=== PATIENT | female | born 1965 | race Caucasian/White ===

== ENCOUNTER → 2016-11-09 | Outpatient (CLI) | payer OTHER ==
[~2016-11-09] MED LIST: ACETAMINOPHEN PO; ATV/2 PO; CYCL10TA6 PO; GABA-112 PO; MELO7.5T5 PO; OXYB5TAB74 PO; OXYC20TA50 PO; OXYCODONE PO; PRLSR20 PO; RANI150T3 PO; ZOLP6.252 PO; [UNRECOGNIZED DRUG - OTHER] PO
--- NOTE | 2016-11-09 16:14 | DIAGNOSTIC IMAGING REPORT ---
CERVICAL SPINE 5 VIEWS HISTORY: Neuropathy M54.2 INCREASED NEUROPATHY COMPARISON: None. FINDINGS: The cervical spine is visualized from C1 through the superior endplate of T1. There is no fracture. Evidence for operative fusion of the C6-C7 vertebral bodies. Considerable degenerative change C5-C6 and to lesser extent C4-C5. Mild osteophytic narrowing of the neuroforamina bilaterally at C5-C7. Prevertebral soft tissues and the atlantodens interval are intact. IMPRESSION: Degenerative and postoperative change primarily from C5 through C7. Electronically signed by: Hussein Clemente M.D. 11/09/2016 4:13 PM Dictated Date/Time: 11/09/2016 4:12 PM
== END | disposition home or self-care (01) ==
LOC: C.RAD 15:45
DX: M54.2 Cervicalgia (principal)

== ENCOUNTER 2017-12-24 03:46 | Inpatient (IN) | payer OTHER ==
[~2017-12-24] VITALS: Ht 152.4 cm; Wt 50.1 kg
[~2017-12-24 03:46] MED LIST changes: +DTR/5 PO; -OXYB5TAB74 PO
[2017-12-24] MEDS ORDERED: SODIUM CHLORIDE 0.9% 1000ML 1,000 ML IV STA (03:51)
[2017-12-24] MEDS ORDERED: MoRPHine SULFATE 4 MG/ML 1 ML CARP\\VIAL IV STA (04:27)
[2017-12-24] MEDS ORDERED: ONDANSETRON INJ 2 MG/ML 2 ML VIAL IV STA (04:27)
[2017-12-24] MEDS ORDERED: OXYC-164 PO (04:42)
[2017-12-24] MEDS ORDERED: LISI-726 PO (04:45)
[2017-12-24] MEDS ORDERED: METH-1305 PO (04:45)
[2017-12-24] MEDS ORDERED: TRAZ1TAB48 PO (04:45)
[2017-12-24] MEDS ORDERED: RANI300T PO (04:45)
[2017-12-24] MEDS ORDERED: GABA-1219 PO (04:48)
[2017-12-24] MEDS ORDERED: PXL20 PO (04:48)
[2017-12-24] MEDS ORDERED: DTRSR/10 PO (04:48)
[2017-12-24] MEDS ORDERED: OMEP40CA41 PO (04:48)
[2017-12-24] MEDS ORDERED: MELO-84 PO (04:48)
[2017-12-24] MEDS ORDERED: THIA1TAB11 PO (04:49)
[2017-12-24] MEDS ORDERED: MELATAB2 PO (04:49)
[2017-12-24] MEDS ORDERED: ASPI81TA28 PO (04:49)
[2017-12-24] MEDS ORDERED: CHOL1000 PO (04:49)
[2017-12-24] MEDS ORDERED: TIZA4CAP PO (04:49)
[2017-12-24] MEDS ORDERED: HYDROmorphone INJ 1 MG/ML SYR IV STA (04:54)
--- NOTE | 2017-12-24 04:55 | EMERGENCY ROOM VISIT NOTE ---
ED Visit Note First contact with patient: 03:48 I have personally evaluated and examined this patient. I agree with assessment and plan of Kerri Georges PA-C. Left hip fx s/p fall out of wheelchair after hitting a paint.
[2017-12-24 05:10] LABS: BASO % 0.2 %; BASO ABS # 0.02 K/uL (0-0.2); EOS % 0.5 %; EOS ABS # 0.06 K/uL (0-0.5); HEMATOCRIT 44.7 % (37-47); HEMOGLOBIN 15.4 g/dL (12.0-16.0); IG# 0.06 K/uL (0.00-0.02); LYMPH ABS # 2.08 K/uL (1.2-3.4); MEAN CORPUSCULAR HEMOGLOBIN 34.5 pg (25-34); MEAN CORPUSCULAR HGB CONC 34.5 g/dl (32-36); MEAN PLATELET VOLUME 10.3 fL (7.4-10.4); MONO % 5.2 %; MONO ABS # 0.64 K/uL (0.11-0.59); NEUT % 76.6 %; NEUT ABS # 9.37 K/uL (1.4-6.5); PLATELET COUNT 203 K/uL (130-400); RED CELL DISTRIBUTION WIDTH SD 47.3 fL (36.4-46.3); WHITE BLOOD COUNT 12.23 K/uL (4.8-10.8)
[2017-12-24 05:26] LABS: PTT PATIENT 28.2 SECONDS (21.0-31.0)
[2017-12-24] MEDS ORDERED: SODIUM CHLORIDE 0.9% 500ML 500 ML IV STA (05:28)
[2017-12-24 05:34] LABS: ALBUMIN 3.7 gm/dl (3.4-5.0); CALCIUM 7.9 mg/dl (8.5-10.1); CREATININE 0.47 mg/dl (0.60-1.20); POTASSIUM 3.7 mmol/L (3.5-5.1); TOTAL PROTEIN 7.3 gm/dl (6.4-8.2)
[2017-12-24] MEDS ORDERED: CEFTRIAXONE SOD INJ 1 GM ADDVIAL IV STA (05:59)
[2017-12-24] MEDS ORDERED: ONDANSETRON INJ 2 MG/ML 2 ML VIAL IV PRN ×2 (06:00→07:30)
[2017-12-24] MEDS ORDERED: CEFAZOLIN 2000MG IV PUSH 15 ML IV SCH (06:00)
[2017-12-24] MEDS ORDERED: HYDROmorphone INJ 1 MG/ML SYR IV PRN (06:00)
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
[2017-12-24] MEDS ORDERED: MoRPHine SULFATE 2 MG/ML CARP IV PRN (07:30)
[2017-12-24] MEDS ORDERED: TRAZODONE HCL 50 MG TAB PO PRN (07:30)
[2017-12-24] MEDS ORDERED: GABAPENTIN 300 MG CAP PO PRN (07:30)
[2017-12-24] MEDS ORDERED: SOD PHOSPHATE/SOD BIPHOSPHATE ENEMA 132 ML BTL PR PRN (07:30)
[2017-12-24] MEDS ORDERED: POLYETHYLENE (MIRALAX) 17 GM PACK PO PRN (07:30)
[2017-12-24] MEDS ORDERED: NALOXONE HCL 0.4 MG/1 ML VIAL/CARP IV PRN (07:30)
[2017-12-24] MEDS ORDERED: RANITIDINE HCL 150 MG TAB PO PRN (07:30)
[2017-12-24] MEDS ORDERED: ACETAMINOPHEN 325 MG TAB PO PRN (07:30)
[2017-12-24] MEDS ORDERED: BISACODYL 10 MG SUPP PR PRN (07:30)
[2017-12-24] MEDS ORDERED: MAGNESIUM HYDROXIDE SUSP 30 ML UDC PO PRN (07:30)
[2017-12-24 07:42] VITALS: O2SAT 97; Ht 152.4 cm; Wt 50.1 kg
--- NOTE | 2017-12-24 07:43 | DIAGNOSTIC IMAGING REPORT ---
LEFT TIBIA AND FIBULA 2 VIEWS CLINICAL HISTORY: Left leg pain. FINDINGS: AP and crosstable lateral views of the left tibia and fibula are obtained. No prior studies are available for comparison at the time of dictation. The skeletal structures are osteopenic. There is no radiographic evidence of left tibial or fibular fracture. Mild degenerative changes noted in the knee and ankle. The overlying soft tissues are normal as imaged noting regional atrophy of the musculature. IMPRESSION: Osteopenia with no radiographic evidence of left tibial or fibular fracture. Electronically signed by: Shimon Morgan M.D. 12/24/2017 7:41 AM Dictated Date/Time: 12/24/2017 7:40 AM
[2017-12-24 08:25] VITALS: BP_SYST 182; BP_SYST 199; BP_DIAS 112; BP_DIAS 91; PULSE 101; TEMP 37.1; O2SAT 95
[2017-12-24] MEDS ORDERED: LACTATED RINGER'S 1000ML 1,000 ML IV SCH (08:45)
--- NOTE | 2017-12-24 08:45 | DIAGNOSTIC IMAGING REPORT ---
SINGLE VIEW CHEST CLINICAL HISTORY: Hip fracture. FINDINGS: An AP, portable, supine chest radiograph is compared to study dated 01/06/2016. The examination is significantly degraded by portable technique and patient rotation. The cardiomediastinal silhouette is unremarkable. The lungs and pleural spaces are clear. No pneumothorax is seen. The skeletal structures appear osteopenic. There are healed left-sided rib fractures. Extensive fusion hardware is seen at the thoracolumbar junction. Cholecystectomy clips are noted in the right upper quadrant. IMPRESSION: No acute cardiopulmonary abnormality. Electronically signed by: Shimon Morgan M.D. 12/24/2017 8:43 AM Dictated Date/Time: 12/24/2017 8:43 AM
--- NOTE | 2017-12-24 08:47 | DIAGNOSTIC IMAGING REPORT ---
SINGLE VIEW PELVIS; 2 VIEWS LEFT HIP CLINICAL HISTORY: Fall with left hip pain. FINDINGS: An AP view of the pelvis with AP and crosstable lateral views of the left hip are correlated with abdominal radiograph dated 01/06/2016. The skeletal structures are osteopenic. There is a nondistracted intertrochanteric fracture of the left femur. No additional fracture is identified. The bony pelvis and right hip appear maintained. Mild degenerative joint space narrowing is seen in the hips. Soft tissue edema is present in the left upper thigh. Postoperative change projects over the pubic symphysis. An ostomy projects over the right lower quadrant. IMPRESSION: 1. There is a nondistracted intertrochanteric fracture of the left femur. 2. No additional fracture is seen involving the bony pelvis or the right hip. Electronically signed by: Shimon Morgan M.D. 12/24/2017 8:46 AM Dictated Date/Time: 12/24/2017 8:44 AM
[2017-12-24] MEDS: OXYBUTYNIN CHLORIDE 5 MG TABCR PO SCH (09:26)
[2017-12-24] MEDS: METHENAMINE HIPPURATE 1 GM TAB PO SCH ×2 (09:27→20:33)
[2017-12-24] MEDS: PAROXETINE 20 MG TAB PO SCH (09:28)
[2017-12-24] MEDS: CHOLECALCIFEROL 1000 INTER.UNIT TAB PO SCH (09:28)
[2017-12-24] MEDS: PANTOprazole SOD 40 MG TAB PO SCH (09:29)
[2017-12-24] MEDS: ASPIRIN 81 MG ECTAB PO SCH (09:29)
[2017-12-24] MEDS: THIAMINE HCL 100 MG TAB PO SCH (09:29)
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
[2017-12-24] MEDS ORDERED: CHLORDIAZEPOXIDE 10 MG CAP PO PRN (11:00)
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
[2017-12-24] MEDS ORDERED: CLONIDINE HCL 0.1 MG TAB PO PRN (11:15)
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
[2017-12-24] MEDS: OXYCODONE HCL 20 MG TABCR (OXYCONTIN) PO SCH ×2 (11:31→20:33)
[2017-12-24] MEDS: MoRPHine SULFATE 4 MG/ML 1 ML CARP\\VIAL IV PRN ×2 (14:28→18:46)
[2017-12-24 15:56] VITALS: BP 155/81; PULSE 71; TEMP 37.1; O2SAT 97
[2017-12-24 17:00] VITALS: O2SAT 97
[2017-12-24] MEDS: DOCUSATE SODIUM/SENNA 50/8.6MG TAB PO SCH (20:33)
[2017-12-24] MEDS ORDERED: NON-FORMULARY MEDICATION (Melatonin (Melatonin Maximum Strengt) 1 TAB) PO SCH (21:00)
[2017-12-24 23:04] VITALS: BP 168/87; PULSE 71; TEMP 37.6; O2SAT 97
[2017-12-25] VITALS (10 sets, daily range): BP systolic 93–174; BP diastolic 53–97; PULSE 74–93; TEMP 36.5–37.2; O2SAT 94–99
[2017-12-25] MEDS: MoRPHine SULFATE 4 MG/ML 1 ML CARP\\VIAL IV PRN ×2 (00:21→00:55)
--- NOTE | 2017-12-25 07:14 | History & Physical Bridge Note ---
H&P Re-Evaluation Bridge Note: I have examined the patient, reviewed the History & Physical and in the interval since the performance of the History & Physical I have noted the following changes of clinical significance: No changes noted
[2017-12-25] MEDS ORDERED: MIDAZOLAM HCL 1 MG/ML 2ML VIAL ONE ×2 (07:23→07:54)
[2017-12-25] MEDS ORDERED: FENTANYL CITRATE INJ 50 MCG/1 ML 2 ML VIAL ONE ×3 (07:23→08:46)
[2017-12-25] MEDS ORDERED: PROPOFOL IV EMULSION 10 MG/ML 20 ML VIAL ONE (07:24)
[2017-12-25] MEDS ORDERED: ONDANSETRON INJ 2 MG/ML 2 ML VIAL IV PRN ×2 (07:30→09:30)
[2017-12-25] MEDS ORDERED: PHENYLEPHRINE 100MCG/ML 5ML SYR IV PRN (07:30)
[2017-12-25] MEDS ORDERED: ATROPINE SULFATE 0.1 MG/ML 5ML SYR IV PRN (07:30)
[2017-12-25] MEDS ORDERED: HYDROmorphone INJ 2 MG/ML SYR/VIAL IV PRN (07:30)
[2017-12-25] MEDS ORDERED: FLUMAZENIL 0.1 MG/1 ML 10 ML VIAL IV PRN (07:30)
[2017-12-25] MEDS ORDERED: MEPERIDINE HCL 25 MG/ML CARP IV PRN (07:30)
[2017-12-25] MEDS ORDERED: FENTANYL CITRATE INJ 50 MCG/1 ML 2 ML VIAL IV PRN (07:30)
[2017-12-25] MEDS ORDERED: EpHEDrine SULFATE INJ 50 MG/ML AMP IV PRN (07:30)
[2017-12-25] MEDS ORDERED: NALOXONE HCL 0.4 MG/1 ML VIAL/CARP IV PRN (07:30)
[2017-12-25] MEDS ORDERED: DEXAMETHASONE SOD INJ 4 MG/ML VIAL ONE (08:21)
[2017-12-25] MEDS ORDERED: ONDANSETRON INJ 2 MG/ML 2 ML VIAL ONE (08:21)
[2017-12-25] MEDS ORDERED: BUPIVACAINE 0.5 % 5 MG/1 ML PF 10ML VIAL ONE (08:56)
[2017-12-25] MEDS: ASPIRIN 81 MG ECTAB PO SCH (09:00)
--- NOTE | 2017-12-25 09:25 | [facility] Post Operative Brief Note ---
Immediate Operative Summary Operative Date Dec 25, 2017. Pre-Operative Diagnosis Intertrochanteric fracture, Left Hip. Post-Operative Diagnosis Same as preoperative. Procedure(s) Performed Intramedullary Tres Femur, Left Hip Surgeon Dr. Jeronimo Holden Butane Compressor Operator Surgeon(s) Lennox Leyva PA-C Estimated Blood Loss 250ml Findings Consistent with Post-Op Diagnosis Specimens None Anesthesia Type General
--- NOTE | 2017-12-25 09:28 | DIAGNOSTIC IMAGING REPORT ---
L FEMUR 2 VIEWS ROUTINE CLINICAL HISTORY: Left trochanteric nail. COMPARISON: Left hip and pelvis radiograph December 24, 2017. Fluoroscopy time: 52 seconds. FINDINGS: 2 fluoroscopic images demonstrate placement of an intramedullary jacob and trochanteric nail within the left femur. This fixates the intertrochanteric fracture of the left femur which appears anatomically aligned. No unexpected radiopaque foreign bodies identified. IMPRESSION: Fluoroscopic images demonstrating internal fixation of the intertrochanteric fracture of the left femur. Electronically signed by: Jerrod Chandra M.D. 12/25/2017 9:27 AM Dictated Date/Time: 12/25/2017 9:26 AM
[2017-12-25] MEDS ORDERED: OXYCODONE HCL IR 5 MG TAB (IMMEDIATE RELEASE) PO PRN ×2 (09:30)
[2017-12-25] MEDS ORDERED: HYDROmorphone INJ 0.5 MG/0.5 ML SYR IV PRN (09:30)
[2017-12-25] MEDS: SODIUM CHLORIDE 0.9% 1000ML 1,000 ML IV SCH ×2 (10:00→20:47)
[2017-12-25] MEDS: LABETALOL HCL IV 5 MG/ML 20ML IV PRN ×2 (10:05→10:10)
--- NOTE | 2017-12-25 10:37 | Anesthesiology Progress Note ---
Anesthesia Post Op Note Date & Time Dec 25, 2017 at 10:37 Vital Signs Pain Intensity: 0 Vital Signs Past 12 Hours Date Time Temp Pulse Resp B/P (MAP) Pulse Ox O2 Delivery O2 Flow Rate FiO2 12/25/17 10:25 36.5 79 18 145/91 97 Room Air Oxymask 12/25/17 10:15 74 15 140/86 99 Room Air Oxymask 12/25/17 10:05 91 15 155/97 97 Room Air Oxymask 12/25/17 10:00 97 15 174/122 96 Room Air Oxymask 12/25/17 09:50 103 17 176/122 96 Room Air Oxymask 12/25/17 09:40 97 16 176/109 96 Oxymask 8 12/25/17 09:32 36.2 114 16 107/82 96 Oxymask 8 12/25/17 07:20 37.1 93 18 174/81 (112) 96 Room Air 12/25/17 00:20 Room Air 12/24/17 23:04 37.6 71 16 168/87 (114) 97 Room Air Notes Mental Status: alert / awake / arousable, participated in evaluation Pt Amnestic to Procedure: Yes Nausea / Vomiting: adequately controlled Pain: adequately controlled Airway Patency, RR, SpO2: stable & adequate BP & HR: stable & adequate Hydration State: stable & adequate Anesthetic Complications: no major complications apparent The patient did well. She is awake and comfortable in PACU. She was given labetalol for hypertension in the PACU. Her vitals are now stable.
[2017-12-25] MEDS: MULTI-VITAMIN INFUSION INJ 10 ML, THIAMINE HCL INJ 100 MG, FoLIC ACID INJ 1 MG in SODIU... IV SCH (11:20)
[2017-12-25] MEDS: OXYCODONE HCL 20 MG TABCR (OXYCONTIN) PO SCH ×2 (11:21→20:46)
[2017-12-25] MEDS: CHOLECALCIFEROL 1000 INTER.UNIT TAB PO SCH (11:22)
[2017-12-25] MEDS: OXYBUTYNIN CHLORIDE 5 MG TABCR PO SCH (11:22)
[2017-12-25] MEDS: THIAMINE HCL 100 MG TAB PO SCH (11:23)
[2017-12-25] MEDS: PAROXETINE 20 MG TAB PO SCH (11:23)
[2017-12-25] MEDS: METHENAMINE HIPPURATE 1 GM TAB PO SCH ×2 (11:25→20:56)
[2017-12-25] MEDS: PANTOprazole SOD 40 MG TAB PO SCH (11:26)
--- NOTE | 2017-12-25 12:56 | Progress Note ---
Subjective Date of Service: Dec 25, 2017. Problem List Medical Problems: (1) Closed left hip fracture Status: Acute (2) Fall Status: Acute (3) Lower leg abrasion Status: Acute (4) UTI (urinary tract infection) Status: Acute Objective Vital Signs Date Time Temp Pulse Resp B/P (MAP) Pulse Ox O2 Delivery O2 Flow Rate FiO2 12/25/17 12:45 37.1 83 15 93/53 (66) 94 Room Air 12/25/17 12:06 37.1 83 16 108/73 (85) 94 Room Air 12/25/17 11:25 36.5 79 16 158/97 (117) 97 Room Air 12/25/17 10:50 36.9 77 16 122/87 (99) 96 Room Air 12/25/17 10:25 36.5 79 18 145/91 97 Room Air Oxymask 12/25/17 10:15 74 15 140/86 99 Room Air Oxymask 12/25/17 10:05 91 15 155/97 97 Room Air Oxymask 12/25/17 10:00 97 15 174/122 96 Room Air Oxymask 12/25/17 09:50 103 17 176/122 96 Room Air Oxymask 12/25/17 09:40 97 16 176/109 96 Oxymask 8 12/25/17 09:32 36.2 114 16 107/82 96 Oxymask 8 12/25/17 07:20 37.1 93 18 174/81 (112) 96 Room Air 12/25/17 00:20 Room Air 12/24/17 23:04 37.6 71 16 168/87 (114) 97 Room Air 12/24/17 17:00 97 Room Air 12/24/17 15:56 37.1 71 16 155/81 (105) 97 Room Air Assessment and Plan 52-year-old paraplegic female fell out of her wheelchair sustaining left hip fracture scheduled for operative repair Patient is a history of hypertension, holding lisinopril, clonidine prn as it may also help with any alcohol withdrawal symptoms Alcohol use, this is a sensitive subject the patient denied to me but admitted to the anesthesiologist Dr. Arguello but with the hospice is that this would not be placed in her chart. We will give her a banana bag, continue to have Librium available paraplegia oxybutynin Zanaflex trazodone and gabapentin depression Paxil GERD Prilosec this week pharmacy substituted Orthopedics has chosen Aspirin bid for DVT prevention
[2017-12-25] MEDS: CEFAZOLIN IV 1,000 MG in SYRINGE 0 ML IV SCH ×2 (15:39→23:40)
[2017-12-25] MEDS: OXYCODONE HCL IR 5 MG TAB (IMMEDIATE RELEASE) PO PRN ×2 (15:40→20:47)
[2017-12-25] MEDS: HYDROmorphone INJ 0.5 MG/0.5 ML SYR IV PRN (18:33)
[2017-12-25] MEDS: DOCUSATE SODIUM/SENNA 50/8.6MG TAB PO SCH (20:57)
[2017-12-25] MEDS: ASPIRIN/ALUM/MAGNES/CAL CARB 325 MG TAB PO SCH (20:57)
[2017-12-26] MEDS: OXYCODONE HCL IR 5 MG TAB (IMMEDIATE RELEASE) PO PRN ×3 (02:20→23:43)
[2017-12-26 03:10] VITALS: BP 96/62; PULSE 77; TEMP 37.2; O2SAT 98
[2017-12-26 06:51] LABS: HEMATOCRIT 28.9 % (37-47); MEAN CELL VOLUME 99.7 fL (80-100); MEAN CORPUSCULAR HEMOGLOBIN 34.5 pg (25-34); MEAN CORPUSCULAR HGB CONC 34.6 g/dl (32-36); MEAN PLATELET VOLUME 9.8 fL (7.4-10.4); PLATELET COUNT 144 K/uL (130-400); RED CELL DISTRIBUTION WIDTH CV 12.7 % (11.5-14.5); RED CELL DISTRIBUTION WIDTH SD 46.6 fL (36.4-46.3); WHITE BLOOD COUNT 11.84 K/uL (4.8-10.8)
[2017-12-26 07:11] VITALS: BP 120/69; PULSE 75; TEMP 37.3; O2SAT 97
--- NOTE | 2017-12-26 08:15 | OPERATIVE REPORT ---
DATE OF OPERATION: 12/25/2017 PREOPERATIVE DIAGNOSIS: Intertrochanteric fracture, left hip. POSTOPERATIVE DIAGNOSIS: Same. PROCEDURE: Included an intramedullary rodding, proximal femur, short nail, Synthes marker.to. SURGEON: Jeronimo Holden DO. MARKETING RESEARCHER: Lennox Leyva PA-C. COMPLICATIONS: None apparent. BLOOD LOSS: 250. COUNTS: Sponge and needle counts correct. DRAINS: None used. DESCRIPTION OF PROCEDURE: Patient was taken to the operating room. A general intubated anesthetic provided after a failed spinal anesthesia. She was placed on the traction table, it was not difficult because of her contractions of the musculature and the smallness of her lower extremity. We did get her safely secured. We pulled her out to length in a provisional reduction. We scrubbed, prepped, draped sterile. We made a skin incision, fascial incision, came right in the tip of the greater trochanter, advanced the guidewire, visualized both AP and lateral images. We reamed, put in a small nail, locked proximally and distally. I was pleased with the essentially anatomic orthodoxy and positioning of the implant. We irrigated and closed in layers, staple gun on the skin, sterile dressing applied. The patient was returned to PACU stable. I attest to the content of the Intraoperative Record and any orders documented therein. Any exception s are noted below.
[2017-12-26 08:26] VITALS: O2SAT 97
[2017-12-26] MEDS: OXYCODONE HCL 20 MG TABCR (OXYCONTIN) PO SCH ×2 (09:18→21:00)
[2017-12-26] MEDS: METHENAMINE HIPPURATE 1 GM TAB PO SCH ×2 (09:19→21:00)
[2017-12-26] MEDS: ASPIRIN/ALUM/MAGNES/CAL CARB 325 MG TAB PO SCH ×2 (09:19→20:59)
[2017-12-26] MEDS: PAROXETINE 20 MG TAB PO SCH (09:20)
[2017-12-26] MEDS: OXYBUTYNIN CHLORIDE 5 MG TABCR PO SCH (09:20)
[2017-12-26] MEDS: LISINOPRIL 20 MG TAB PO SCH (09:20)
[2017-12-26] MEDS: CIPROFLOXACIN 500 MG TAB PO SCH ×2 (09:21→21:00)
[2017-12-26] MEDS: PANTOprazole SOD 40 MG TAB PO SCH (09:21)
[2017-12-26] MEDS: THIAMINE HCL 100 MG TAB PO SCH (09:22)
[2017-12-26] MEDS: CHOLECALCIFEROL 1000 INTER.UNIT TAB PO SCH (09:22)
[2017-12-26] MEDS: MULTI-VITAMIN INFUSION INJ 10 ML, THIAMINE HCL INJ 100 MG, FoLIC ACID INJ 1 MG in SODIU... IV SCH (09:27)
--- NOTE | 2017-12-26 09:47 | Clinical Documentation Query ---
CLINICAL DOCUMENTATION QUERY QUERY 1 OF 2 52 yo female admitted with left hip fracture and surgical intervention. Hgb was 15.4 on admission and trended down to 10 post surgery. In your clinical opinion is this patient being managed for: ( x ) Expected acute blood loss anemia, postoperative ( ) Not Agree ( ) Other explanation of clinical findings (No explanation is considered a No Response) ( ) Unable to determine ( ) Need to Discuss (Phone CDS or qliq) (No discussion is considered a No Response) The medical record reflects the following clinical findings, treatment, and risk factors. Clinical Indicators: As above Treatment: IV hydration, type and screen, I&O, serial CBCs Risk Factors: S/P surgical intervention, 250ml blood loss, IV hydration QUERY 2 OF 2 Patient's urinalysis shows large leukocytes, 10-30 WBCs, and 2+ bacteria. Urine culture shows Klebsiella Oxytoca/Pseudomonas Aeruginosa. Patient has a cash catheter and is on Cipro and Ancef IV. In your clinical opinion is this patient being managed for: ( x ) Urinary tract infection Expected acute blood loss anemia, postoperative ( ) Not Agree ( ) Other explanation of clinical findings (No explanation is considered a No Response) ( ) Unable to determine ( ) Need to Discuss (Phone CDS or qliq) (No discussion is considered a No Response) The medical record reflects the following clinical findings, treatment, and risk factors. Clinical Indicators: As above Treatment: As above Risk Factors: Partial paraplegia with continuous cash catheter, female Please clarify and document your clinical opinion in the progress notes and discharge summary. Terms such as "probable", "suspected", "likely", "questionable", "possible", or "still to be ruled out" are acceptable. IF IN AGREEMENT, YOU MUST DOCUMENT ABOVE DIAGNOSTIC STATEMENT IN DAILY PROGRESS NOTES AND DISCHARGE SUMMARY. This document is not part of the patient's record. Thank You, Nirali Navarro RN, MSN [phone]
[2017-12-26] MEDS: SODIUM CHLORIDE 0.9% 1000ML 1,000 ML IV SCH (10:49)
--- NOTE | 2017-12-26 10:59 | ORTHOPEDICS PROGRESS NOTE ---
DATE: 12/26/2017 SUBJECTIVE: She is alert and oriented, moderate complaints of pain, really in her ribcage, shoulders, not so much in her left hip. OBJECTIVE: VITAL SIGNS: Stable. 37.2 oral temperature. Blood pressure is stable. Hematocrit 28.1, hemoglobin 10.1. ASSESSMENT: Status post open reduction internal fixation of her hip. PLAN: Includes up and ambulatory at least out of bed to a wheelchair. She will be complete assist and complete lift, will be a very difficult postoperative course. Hopefully, get her to a rehabilitation center tomorrow the or at latest the . She would be unsafe to go home.
[2017-12-26] MEDS ORDERED: NURSING VERBAL MED ORDER ONE (11:45)
--- NOTE | 2017-12-26 15:18 | Progress Note ---
Subjective Date of Service: Dec 26, 2017. Subjective Pt evaluation today including: conversation w/ patient, physical exam, chart review, lab review, review of studies, conversation w/ leasing consultant, review of inpatient medication list Voiding: cash catheter in place Reports significant pain when moved, she want to keep Cash for day 1 or 2 more , I agreed, Problem List Medical Problems: (1) Closed left hip fracture Status: Acute (2) Fall Status: Acute (3) Lower leg abrasion Status: Acute (4) UTI (urinary tract infection) Status: Acute Review of Systems Constitutional: + weakness, + fatigue, No fever, No chills, No sweats, No weight loss, No problem reported Eyes: No worsening of vision, No eye pain, No redness, No discharge, No diplopia ENT: No hearing loss, No unusual epistaxis, No nasal symptoms, No sore throat, No tinnitus, No dental problems, No trouble swallowing Respiratory: No cough, No sputum, No wheezing, No shortness of breath, No dyspnea on exertion, No dyspnea at rest, No hemoptysis Cardiac: No chest pain, No orthopnea, No PND, No edema, No claudication, No palpitations Abdomen: No pain, No nausea, No vomiting, No diarrhea, No constipation Musculoskeletal: + joint pain, No muscle pain, No swelling, No calf pain Female : No dysuria, No urinary frequency, No hematuria, No incontinence, No abnormal vaginal bleeding, No vaginal discharge Neurologic: No memory loss, No paralysis, No weakness, No numbness/tingling, No vertigo, No balance problems Psychiatric: No depression symptoms, No anhedonism, No anxiety, No insomnia, No substance abuse Heme: No abnormal bleeding/bruising, No clotting problems, No swollen lymph nodes, No night sweats Endo: No fatigue, No excessive thirst, No excessive urination Skin: No rash, No itch, No new/changing skin lesions, No color change, No bleeding Objective Vital Signs Date Time Temp Pulse Resp B/P (MAP) Pulse Ox O2 Delivery O2 Flow Rate FiO2 12/26/17 08:26 97 Room Air 12/26/17 07:11 37.3 75 16 120/69 (86) 97 Room Air 12/26/17 03:10 37.2 77 16 96/62 (73) 98 Room Air 12/25/17 23:35 37.2 83 16 109/72 (84) 99 Room Air 12/25/17 20:30 Room Air 12/25/17 19:25 37.0 74 16 104/65 (78) 98 Room Air 12/25/17 15:54 36.8 76 16 125/77 (93) 96 Room Air 12/25/17 15:25 96 Room Air Physical Exam General Appearance: WD/WN, no apparent distress, + thin Eyes: normal inspection, PERRL, EOMI, sclerae normal ENT: normal ENT inspection, hearing grossly normal, pharynx normal Neck: supple, no adenopathy, thyroid normal, no JVD, no carotid bruits, trachea midline Respiratory/Chest: chest non-tender, lungs clear, normal breath sounds, no respiratory distress, no accessory muscle use Cardiovascular: regular rate, rhythm, no edema, no gallop, no JVD, no murmur Abdomen: normal bowel sounds, non tender, soft, no organomegaly, no pulsatile mass, + pertinent finding (Cash in place,) Extremities: normal range of motion, non-tender, normal inspection, no pedal edema, no calf tenderness, normal capillary refill, pelvis stable Neurologic/Psychiatric: peoplesoft financials consultant II-XII nml as tested, alert, oriented x 3, + motor weakness Skin: normal color, warm/dry, no rash Lymphatic: no adenopathy Laboratory Results Last 24 Hours Test 12/26/17 06:35 White Blood Count 11.84 K/uL Red Blood Count 2.90 M/uL Hemoglobin 10.0 g/dL Hematocrit 28.9 % Mean Corpuscular Volume 99.7 fL Mean Corpuscular Hemoglobin 34.5 pg Mean Corpuscular Hemoglobin Concent 34.6 g/dl RDW Standard Deviation 46.6 fL RDW Coefficient of Variation 12.7 % Platelet Count 144 K/uL Mean Platelet Volume 9.8 fL Assessment and Plan 52-year-old paraplegic female admitted on December 24, 2017 because of fell out of her wheelchair sustaining left hip fracture Procedure done on December 25, 2017, Status post open reduction internal fixation of her hip Postop day 1, Orthopedic input appreciated, ambulatory at least out of bed to a wheelchair. Looking for rehabilitation center tomorrow Patient is not safe to go home Patient is a history of hypertension, holding lisinopril, clonidine prn Possible alcohol use, patient denied to hospitalist but admitted to the anesthesiologist Dr. Arguello Continue to give her a banana bag, continue to have Librium available paraplegia from accident, because of spinal injury, oxybutynin Zanaflex trazodone and gabapentin depression Paxil GERD Prilosec this week pharmacy substituted Klebsiella and Pseudomonas UTI, Cipro started, Orthopedics has chosen Aspirin bid for DVT prevention recycling worker consultation, continue Cash, Continued [facility] stay due to: multiple IV medications needed Discharge planning: home
[2017-12-26 15:57] VITALS: BP 90/56; PULSE 75; TEMP 37; O2SAT 97
[2017-12-26] MEDS: HYDROmorphone INJ 0.5 MG/0.5 ML SYR IV PRN (16:11)
[2017-12-26] MEDS: DOCUSATE SODIUM/SENNA 50/8.6MG TAB PO SCH (21:00)
[2017-12-26 23:00] VITALS: BP 94/58; PULSE 75; TEMP 37.2; O2SAT 94
[2017-12-27 07:25] VITALS: BP 99/61; PULSE 68; TEMP 37.1; O2SAT 97
[2017-12-27] MEDS: PAROXETINE 20 MG TAB PO SCH (08:20)
[2017-12-27] MEDS: THIAMINE HCL 100 MG TAB PO SCH (08:21)
[2017-12-27] MEDS: PANTOprazole SOD 40 MG TAB PO SCH (08:21)
[2017-12-27] MEDS: METHENAMINE HIPPURATE 1 GM TAB PO SCH (08:21)
[2017-12-27] MEDS: CHOLECALCIFEROL 1000 INTER.UNIT TAB PO SCH (08:21)
[2017-12-27] MEDS: OXYBUTYNIN CHLORIDE 5 MG TABCR PO SCH (08:21)
[2017-12-27] MEDS: LISINOPRIL 20 MG TAB PO SCH (08:21)
[2017-12-27] MEDS: ASPIRIN/ALUM/MAGNES/CAL CARB 325 MG TAB PO SCH (08:22)
[2017-12-27] MEDS: CIPROFLOXACIN 500 MG TAB PO SCH (08:22)
[2017-12-27] MEDS: OXYCODONE HCL IR 5 MG TAB (IMMEDIATE RELEASE) PO PRN ×2 (08:23→14:33)
[2017-12-27] MEDS: MULTI-VITAMIN INFUSION INJ 10 ML, THIAMINE HCL INJ 100 MG, FoLIC ACID INJ 1 MG in SODIU... IV SCH (09:29)
[2017-12-27] MEDS: OXYCODONE HCL 20 MG TABCR (OXYCONTIN) PO SCH (09:30)
[2017-12-27] MEDS ORDERED: CPR500 PO (12:39)
[2017-12-27] MEDS ORDERED: FLV1 PO (12:39)
[2017-12-27] MEDS ORDERED: MULT-1027 PO (12:39)
[2017-12-27] MEDS ORDERED: ASPI325T60 PO (12:39)
--- NOTE | 2017-12-27 12:40 | Discharge Instructions ---
Discharge Instructions Date of Service Dec 27, 2017. Admission Reason for Admission: Closed Left Hip Fracture Discharge Discharge Diagnosis / Problem: left hip fx s/p ORIF Discharge Goals Goal(s): Decrease discomfort, Improve function, Increase independence, Improve disease control, Improve nutritional status, Learn about illness, Diagnostic testing, Therapeutic intervention, Prevent Disease Progression, Specific goals Activity Recommendations Activity Limitations: per Instructions/Follow-up section . Instructions / Follow-Up Instructions / Follow-Up you have left hip fracture Status post open reduction internal fixation of her hip per orthopedic surgeon has chosen Aspirin daily for DVT prevention, I RX 42 days , for the length of oral 325mg ASA, please follow up instruction with Dr. Holden you have heavy alcohol use, recommend quit, and offered help, call pcp if need help you have Urinary tract infection I am giving you Cipro, you need to discontinue Weaver catheter after arriving home, resume straight caths by yourself as you used doing Due to impaired attention of fall precaution, continue home health care, continue PT OT if needed - you need to follow up with your primary care physician in 1 week, - take medication as instructed, never overdose or any misuse, or take with alcohol, because misuse of medicine may cause organ damage or , call me , or your primary care physician if have questions of discharge medicaitons. - call your primary care physician, or go to local emergency room if has any fever/chill, chest pain, shortness of breathing, nausea/vomiting/abdominal pain , facial droop/slurry speech/local weakness, or if has any questions. - fall precaution - diet as instructed - you need to follow up with your subspecialist, such as Dr. Holden Current Hospital Diet Patient's current hospital diet: Regular Diet Discharge Diet Recommended Diet: Regular Diet Procedures Procedures Performed: Intramedullary Tres Femur, Left Hip Pending Studies Studies pending at discharge: no Medical Emergencies . Who to Call and When: Medical Emergencies: If at any time you feel your situation is an emergency, please call 911 immediately. . Non-Emergent Contact Non-Emergency issues call your: Primary Care Provider, Surgeon . . "Provider Documentation" section prepared by Bud Mckoy. .
--- NOTE | 2017-12-27 12:55 | Discharge Summary ---
Discharge Summary Date of Service Dec 27, 2017. Discharge Summary Admission Date: Dec 24, 2017 at 07:26 Discharge Date: Dec 27, 2017 Discharge Disposition: Home with services Principal Diagnosis: left hip fracture s/p ORIF Problems/Secondary Diagnoses: heavy alcohol use, Urinary tract infection Immunizations: History of Tetanus Vaccine?: No History of Pneumococcal: No History of Hepatitis B Vaccine: No Procedures: ORIF Consultations: Orthopedic surgeon Medication Reconciliation New Medications: Folic Acid (Folic Acid) 1 Mg Tab 1 MG PO DAILY for 30 Days Multiple Vitamin (Multi Vitamin) 1 Tab Tab 1 TAB PO DAILY for 30 Days Aspirin Buffered (Hood Carb-Mag (Tri-Buffered Aspirin) 1 Tab Tab 325 MG PO BID for 42 Days, TAB Ciprofloxacin (Ciprofloxacin HCl) 500 Mg Tab 500 MG PO BID for 7 Days, #14 TAB Continued Medications: Aspirin (Aspirin Ec) 81 Mg Tab 81 MG PO DAILY Cholecalciferol (Vitamin D3) 1,000 Unit Tab 1 TAB PO DAILY, TAB 3 Refills Gabapentin (Gabapentin) 300 Mg Cap 300 MG PO TID PRN for Pain Lisinopril (Lisinopril) 20 Mg Tab 20 MG PO DAILY Melatonin (Melatonin Maximum Strengt) 5 Mg Tab 1 TAB PO HS, #30 TAB 1 Refill Meloxicam (Mobic) 15 Mg Tab 15 MG PO HS Methenamine Hippurate (Methenamine Hippurate) 1 Gm Tab 1 GM PO BID Omeprazole (Prilosec) 40 Mg Cap 40 MG PO DAILY Oxybutynin Chloride (Oxybutynin Chloride ER) 10 Mg Tabcr 20 MG PO DAILY 2 tablet dose Oxycodone Hcl (Oxycontin) 20 Mg Tab 20 MG PO AMHS Oxycodone Hcl (Oxycodone Hcl) 10 Mg Tab 10 MG PO TID PRN for Pain Paroxetine (Paroxetine HCl) 20 Mg Tab 20 MG PO DAILY Ranitidine Hcl (Zantac) 300 Mg Tab 300 MG PO HS PRN for Heartburn Thiamine Mononitrate (Vitamin B1) 100 Mg Tab 100 MG PO DAILY Tizanidine (Zanaflex) 4 Mg Cap 4 MG PO BID, CAP Trazodone Hcl (Desyrel) 50 Mg Tab 25 MG PO HS PRN for Sleep 1/2 tablet dose Discharge Exam Doing well, feeling returned to baseline, pain fairly controlled in the left hip , Review of Systems: Constitutional: No fever, No chills, No sweats, No weight loss, No weakness , No fatigue, No problem reported Eyes: No worsening of vision, No eye pain, No redness, No discharge, No diplopia, No problem reported ENT: No hearing loss, No unusual epistaxis, No nasal symptoms, No sore throat, No tinnitus, No dental problems, No trouble swallowing, No problem reported Respiratory: No cough, No sputum, No wheezing, No shortness of breath, No dyspnea on exertion, No dyspnea at rest, No hemoptysis, No problem reported Cardiovascular: No chest pain, No orthopnea, No PND, No edema, No claudication, No palpitations, No problem reported Abdomen: No pain, No nausea, No vomiting, No diarrhea, No constipation, No GI bleeding, No problem reported Musculoskeletal: No joint pain, No muscle pain, No swelling, No calf pain, No problem reported Genitourinary - Female: No dysuria, No urinary frequency, No urinary urgency , No urinary incontinence, No urinary retention, No hematuria, No dysmenorrhea, No menorrhagia, No metrorrhagia, No rash, No vaginal bleeding, No vaginal discharge, No vaginal itching, No vulvodynia, No , No problem reported Neurologic: + paralysis, + weakness, No memory loss, No numbness/tingling, No vertigo, No balance problems, No problem reported Psychiatric: No depression symptoms, No anhedonism, No anxiety, No insomnia , No substance abuse, No problem reported Endocrine: No fatigue, No excessive thirst, No excessive urination, No problem reported Hematologic / Lymphatic: No abnormal bleeding/bruising, No clotting problems , No swollen lymph nodes, No night sweats, No problem reported Integumentary: No rash, No itch, No new/changing skin lesions, No color change, No bleeding, No problem reported Physical Exam: General Appearance: WD/WN, + thin Eyes: normal inspection, PERRL ENT: normal ENT inspection, hearing grossly normal Neck: supple, no adenopathy Respiratory/Chest: chest non-tender, lungs clear, normal breath sounds, no respiratory distress Cardiovascular: regular rate, rhythm, no edema, no gallop Abdomen / GI: normal bowel sounds, non tender, soft, no organomegaly Extremities: normal inspection, no calf tenderness, normal capillary refill Neurologic/Psychiatric: coo & co founder II-XII nml as tested, no motor/sensory deficits , alert, normal mood/affect, normal reflexes, oriented x 3 Skin: normal color, warm/dry Hospital Course 52-year-old paraplegic female admitted on December 24, 2017 because of fell out of her wheelchair sustaining left hip fracture Procedure done on December 25, 2017, Status post open reduction internal fixation of her hip Postop day 2 Orthopedic input appreciated, ambulatory at least out of bed to a wheelchair. I have clarified with orthopedic surgeon, patient is safe to go home with home health care and caregiver support, per PT OT, patient is safe to go home Patient is a history of hypertension, resume lisinopril Possible heavy alcohol use, patient denied to hospitalist but admitted to the anesthesiologist Dr. Arguello Has been given banana bag, and Librium available, will discharge home with oral multiple vitamin, folic acid, thiamine, consult to quit alcohol drinking, offered help, she declined, advised her to follow-up with PCP if needed paraplegia from accident, because of spinal injury, , oxybutynin Zanaflex trazodone and gabapentin depression Paxil GERD Prilosec this week pharmacy substituted Klebsiella and Pseudomonas UTI, Cipro started, Orthopedics has chosen Aspirin daily for DVT prevention, aspirin 325 mg p.o. daily I gave prescription 42 days, and has requested patient to further detail with orthopedic surgeon about this for the length continue Weaver for now, and need to remove Weaver catheter after arriving home and resume straight caths by self as she used do Instructions / Follow-Up you have left hip fracture Status post open reduction internal fixation of her hip per orthopedic surgeon has chosen Aspirin daily for DVT prevention, I RX 42 days , for the length of oral 325mg ASA, please follow up instruction with Dr. Holden you have heavy alcohol use, recommend quit, and offered help, call pcp if need help you have Urinary tract infection I am giving you Cipro, you need to discontinue Weaver catheter after arriving home, resume straight caths by yourself as you used doing Due to impaired attention of fall precaution, continue home health care, continue PT OT if needed - you need to follow up with your primary care physician in 1 week, - take medication as instructed, never overdose or any misuse, or take with alcohol, because misuse of medicine may cause organ damage or , call me , or your primary care physician if have questions of discharge medicaitons. - call your primary care physician, or go to local emergency room if has any fever/chill, chest pain, shortness of breathing, nausea/vomiting/abdominal pain , facial droop/slurry speech/local weakness, or if has any questions. - fall precaution - diet as instructed - you need to follow up with your subspecialist, such as Dr. Holden Total Time Spent: Greater than 30 minutes This includes examination of the patient, discharge planning, medication reconciliation, and communication with other providers. Discharge Instructions Please refer to the electronic Patient Visit Report (Discharge Instructions) for additional information. Additional Copies To Janis Reece.Callie PA-C; Jeronimo Holden, DO
[2017-12-27 13:36] VITALS: BP 99/61; PULSE 68; TEMP 37.1; O2SAT 97
== END 2017-12-27 16:39 | disposition home health service (06) | DRG 481 ==
LOC: EDBD 03:46 → C.EDA 03:47 → C.MSN 07:26 → ENRESERV 07:44
PROVIDERS: ADMIT Orthopaedic Surgery Orthopaedic Surgery of the Spine; ATTEND Orthopaedic Surgery Orthopaedic Surgery of the Spine
PROC: 0QS706Z Reposition Left Upper Femur with Intramedullary Internal Fixation Device, Open Approach (ICD-10-PCS; principal; 2017-12-25 07:00)
DX: S72.142A Displaced intertrochanteric fracture of left femur, initial encounter for closed fracture (principal); N39.0 Urinary tract infection, site not specified; I10 Essential (primary) hypertension; F10.10 Alcohol abuse, uncomplicated; E11.9 Type 2 diabetes mellitus without complications; F32.9 Major depressive disorder, single episode, unspecified; B96.1 Klebsiella pneumoniae [K. pneumoniae] as the cause of diseases classified elsewhere; B96.5 Pseudomonas (aeruginosa) (mallei) (pseudomallei) as the cause of diseases classified elsewhere; F18.21 Inhalant dependence, in remission; Y92.019 Unspecified place in single-family (private) house as the place of occurrence of the external cause; K21.9 Gastro-esophageal reflux disease without esophagitis; S24.104S Unspecified injury at T11-T12 level of thoracic spinal cord, sequela; W05.0XXA Fall from non-moving wheelchair, initial encounter; X58.XXXS Exposure to other specified factors, sequela

== ENCOUNTER 2019-07-15 19:51 | Inpatient (IN) ==
[2019-07-15] MEDS ORDERED: ONDANSETRON INJ 2 MG/ML 2 ML VIAL IV STA (20:27)
[2019-07-15] MEDS ORDERED: SODIUM CHLORIDE 0.9% 500 ML IV ONE (20:27)
[2019-07-15] MEDS: HYDROmorphone INJ 0.5 MG/0.5 ML SYR IV PRN ×2 (21:01→22:05)
[2019-07-15 21:47] LABS: Basophils # (auto) 0.01 K/uL (0-0.2); Basophils % (auto) 0.1 %; Eosinophils # (auto) 0.23 K/uL (0-0.5); Eosinophils % (auto) 2.5 %; Hematocrit (blood only) 48.1 % (37-47); Hemoglobin 17.1 g/dL (12.0-16.0); Immature Granulocytes # (auto) 0.02 K/uL (0.00-0.02); Immature Granulocytes % (auto) 0.2 %; Lymphocytes # (auto) 2.36 K/uL (1.2-3.4); Lymphocytes % (auto) 25.4 %; Mean Corpuscular Hemoglobin 35.6 pg (25-34); Mean Corpuscular Hgb Conc 35.6 g/dL (32-36); Mean Platelet Volume 11.3 fL (7.4-10.4); Monocytes # (auto) 0.41 K/uL (0.11-0.59); Monocytes % (auto) 4.4 %; Neutrophils # (auto) 6.26 K/uL (1.4-6.5); Neutrophils % (auto) 67.4 %; Platelet Count 188 K/uL (130-400); RDW Coefficient of Variation 12.4 % (11.5-14.5); RDW Standard Deviation 45.4 fL (36.4-46.3); Red Blood Count 4.81 M/uL (4.2-5.4); White Blood Count 9.29 K/uL (4.8-10.8)
[2019-07-15 22:03] LABS: Alanine Aminotransferase 43 U/L (12-78); Albumin Level 3.8 gm/dl (3.4-5.0); Aspartate Aminotransferase 41 U/L (15-37); BUN Creatinine Ratio 18.2 (10-20); Blood Urea Nitrogen 9 mg/dl (7-18); Calcium 9.4 mg/dl (8.5-10.1); Carbon Dioxide 26 mmol/L (21-32); Chloride 104 mmol/L (98-107); Est GFR (African American) 128.9; Est GFR (Non-African American) 111.2; Glucose 120 mg/dl (70-99); Lipase 110 U/L (73-393); Potassium 3.4 mmol/L (3.5-5.1); Sodium 139 mmol/L (136-145)
[2019-07-15 22:06] LABS: Albumin Globulin Ratio 0.9 (0.9-2); Alkaline Phosphatase 97 U/L (45-117); Bilirubin,Total 0.8 mg/dl (0.2-1); Globulin 4.3 gm/dl (2.5-4.0); Total Protein 8.1 gm/dl (6.4-8.2)
[2019-07-15] MEDS ORDERED: POTASSIUM CHLORIDE 20 MEQ TABCR PO STA (22:11)
[2019-07-15] MEDS ORDERED: IOVERSOL 100ml IV PRN (22:31)
--- NOTE | 2019-07-15 23:06 | CT Scan Report ---
ABDOMEN AND PELVIS CT WITH IV CONTRAST CT DOSE: 231.71 mGy.cm HISTORY: Generalized abdominal pain. TECHNIQUE: Multiaxial CT images of the abdomen and pelvis were performed following the use of intrave nous contrast. A dose lowering technique was utilized adhering to the principles of ALARA. COMPARISON STUDY: Abdominal ultrasound 02/13/2007. FINDINGS: The lung bases are clear. No pneumoperitoneum. No pneumatosis. Prior internal fixation of a n old, healed left intertrochanteric hip fracture. Dense contrast within the bladder which is decompr essed by Weaver catheter. No suspicious lytic or blastic osseous lesions. Posterior decompression and fusion within the thoracolumbar spine. Old, healed left-sided rib fractures. Diffuse fatty atrophy of the pelvic musculature. Subcutaneous infiltration inferior to the coccyx favors a sacral decubitus u lcer. There is a tiny blind-ending sinus tract along the right side of the suspected decubitus ulcer. The bladder is thickened. The uterus appears surgically absent. The gallbladder is surgically absent . There is a metallic common bile duct stent which appears in good position. This is partially opacif ied. The pneumobilia likely represents stent patency. Hepatic steatosis. No hepatic or splenic masses . The adrenal glands and kidneys are unremarkable. No hydronephrosis. Multiple coarse calcifications and heterogeneity within the pancreatic head. There is minimal peripancreatic inflammatory change. Fi ndings suggest an acute on chronic pancreatitis at the pancreatic head. There is also dilatation of t he proximal to mid main pancreatic duct which measures up to 6 mm in diameter with mild pancreatic ta il atrophy. There is a bulbous and heterogeneous appearance to the pancreatic head which could be due to the pancreatitis or an underlying mass. Mild calcified plaque within the normal caliber abdominal aorta. No bowel wall thickening or obstruction. Normal appendix. The right lower quadrant colostomy. No bowel wall thickening or obstruction. Normal appendix. IMPRESSION: 1. No bowel wall thickening or obstruction. 2. Normal appendix. 3. Right lower quadrant colostomy. 4. Thickened bladder wall. This could be due to decompression or a cystitis. Recommend correlation wi urinalysis. 5. Mild inflammatory change surrounding the heterogeneous pancreatic head with associated calcificati ons. This favors an acute on chronic pancreatitis. 6. Partially opacified common bile duct stent which appears in good position. However, the pneumobili a suggests patency. 7. Bulbous and heterogeneous appearance to the pancreatic head a dilated main pancreatic duct. This i s concerning for an underlying pancreatic mass. 8. Sacral decubitus ulcer. 9. Diffuse fatty atrophy of the pelvic musculature. 10. Hepatic steatosis. ACT 112: Negative or not required by law. Electronically signed by: Saul Broussard M.D. 07/15/2019 11:05 PM
[2019-07-15 23:08] LABS: Appearance Urine Turbid (Clear); Bacteria Urine Automated 4+ (Negative); Bilirubin Urine Negative (Negative); Blood Urine 3+ (Negative); Color Urine Yellow; Epithelial Cell Urine Auto >30 /lpf (0-5); Glucose Urine UA Negative (Negative); Ketones Urine 2+ (Negative); Leukocyte Esterase Urine 2+ (Negative); Nitrite Urine Positive (Negative); Protein Urine 1+ (Negative); RBC Urine Automated >30 /hpf (0-4); Specific Gravity Urine > 1.045 (1.000-1.030); Urobilinogen Urine Negative (Negative); WBC Urine Automated >30 /hpf (0-5)
[2019-07-15] MEDS ORDERED: cefTRIAXone SODIUM 2,000 MG/70 ML BAG IV STA (23:21)
[2019-07-15 23:51] LABS: Mucus Urine Present (None Prsent)
[2019-07-15 23:53] LABS: Amorphous Sediment Urine Present (None Prsent); Cast Urine Automated 0 /lpf (0-5)
[2019-07-16] MEDS: HYDROmorphone INJ 0.5 MG/0.5 ML SYR IV PRN ×5 (00:14→19:58)
--- NOTE | 2019-07-16 01:21 | Emergency Department Note ---
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 reflects all work, treatment, procedures, and medical decision making performed by me.
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
[2019-07-16] MEDS ORDERED: INFLUENZA ADMINISTRATION CHARGE ONE (02:42)
[2019-07-16] MEDS ORDERED: INFLUENZA VIRUS QUAD VACCINE 0.5 ML SYR IM ONE (02:42)
[2019-07-16] MEDS ORDERED: CYCLOBENZAPRINE HCL 10 MG TAB PO PRN (03:24)
[2019-07-16] MEDS ORDERED: NYSTATIN CR 15 GM TUBE EXT PRN (03:24)
[2019-07-16] MEDS ORDERED: PROCHLORPERAZINE 10 MG in SYRINGE 8 ML IV PRN (03:24)
[2019-07-16] MEDS ORDERED: NON-FORMULARY MEDICATION (Melatonin 5 MG) PO PRN (03:24)
[2019-07-16] MEDS ORDERED: TRAZODONE HCL 50 MG TAB PO PRN (03:24)
[2019-07-16] MEDS ORDERED: ONDANSETRON INJ 2 MG/ML 2 ML VIAL IV PRN (03:24)
[2019-07-16] MEDS ORDERED: ondansetron HCL 6 MG in DEXTROSE 5% 50 ML IV PRN (03:40)
[2019-07-16] MEDS: LACTATED RINGER'S 1,000 ML IV SCH ×3 (05:12→20:01)
[2019-07-16] MEDS ORDERED: PHARMACY GLYCEMIC MGMT CONSULT PRN (05:36)
[2019-07-16 07:54] LABS: Basophils # (auto) 0.01 K/uL (0-0.2); Basophils % (auto) 0.1 %; Eosinophils # (auto) 0.28 K/uL (0-0.5); Eosinophils % (auto) 3.3 %; Hematocrit (blood only) 44.7 % (37-47); Hemoglobin 15.3 g/dL (12.0-16.0); Immature Granulocytes # (auto) 0.01 K/uL (0.00-0.02); Immature Granulocytes % (auto) 0.1 %; Lymphocytes # (auto) 3.02 K/uL (1.2-3.4); Lymphocytes % (auto) 35.2 %; Mean Corpuscular Hgb Conc 34.2 g/dL (32-36); Mean Corpuscular Volume 99.3 fL (80-100); Mean Platelet Volume 11.2 fL (7.4-10.4); Monocytes # (auto) 0.57 K/uL (0.11-0.59); Monocytes % (auto) 6.6 %; Neutrophils % (auto) 54.7 %; Platelet Count 173 K/uL (130-400); RDW Coefficient of Variation 12.4 % (11.5-14.5); RDW Standard Deviation 44.9 fL (36.4-46.3); White Blood Count 8.59 K/uL (4.8-10.8)
[2019-07-16 08:05] LABS: Calcium 9.1 mg/dl (8.5-10.1); Est GFR (Non-African American) 122.5; Potassium 3.9 mmol/L (3.5-5.1)
[2019-07-16 08:09] LABS: Albumin Globulin Ratio 0.8 (0.9-2); Bilirubin,Total 0.5 mg/dl (0.2-1); Globulin 3.7 gm/dl (2.5-4.0); Total Protein 6.7 gm/dl (6.4-8.2)
[2019-07-16] MEDS: INSULIN ASPART 100 UNITS/ML 3 ML PEN SC SCH ×4 (08:18→20:13)
[2019-07-16] MEDS: PANTOprazole 40 MG TAB PO SCH (08:19)
[2019-07-16] MEDS: NICOTINE 14 MG/24 HR PATCH TD SCH (08:19)
[2019-07-16] MEDS: PANCREAZE (LIPASE 10,500U) CAP PO SCH ×3 (08:19→17:30)
[2019-07-16] MEDS: ESCITALOPRAM OXALATE 10 MG TAB PO SCH ×2 (08:20→08:40)
[2019-07-16] MEDS: METHENAMINE HIPPURATE 1 GM TAB PO SCH ×2 (08:20→20:07)
[2019-07-16] MEDS: fentaNYL 50 MCG/HR TDSY TD SCH (08:30)
[2019-07-16] MEDS ORDERED: INSULIN GLARGINE SOLOSTAR 100 UNITS/ML 3 ML PEN SC SCH (11:30)
[2019-07-16] MEDS ORDERED: INSULIN GLARGINE SOLOSTAR 100 UNITS/ML 3 ML PEN SC STA (12:43)
--- NOTE | 2019-07-16 12:49 | Pharmacy Report ---
Glycemic Control Consultation - Date of Service July 16, 2019 - Scope Scope: Glycemic Pharmacist consulted for glycemic control and to write orders per [facility] inpatient glycemic control protocol. - Objective Weight: 40.8 kg Accuchecks BSG (last 24hrs): 07/15/19 07/15/19 07/16/19 20:54 23:42 07:02 Glucose 120 H 83 POC Glucose 91 07/16/19 07/16/19 07:26 11:33 Glucose POC Glucose 84 82 Laboratory Data (last 24hrs): 07/15/19 07/16/19 20:54 07:02 Potassium 3.4 L 3.9 Carbon Dioxide 26 26 Anion Gap 9.0 5.0 Creatinine 0.47 L 0.35 L Est Cr Clr Drug Dosing Not Reportable 117.0 - Recent Pertinent Medications Outpatient Anti-diabetic Regimen: * Toujeo 25u daily, humalog TIDM * A1c = 8.9 % 06/25/2019 - Assessment & Plan Assessment & Plan: ASSESSMENT: * Pt is a 54yo F. Per review of her chart she is a type II diabetic. However, given her chronic pancreatitis, I surmise she may have residual beta cell function. Ergo, she may behave more like a type I diabetic? She pw acute on chronic pancreatitis. PMHx consistent with chronic UTI, urinary incontinence, chronic cash, neurogenic bladder. * She is NPO and receiving IV LR PLAN FOR INPATIENT GLYCEMIC CONTROL: * Basal insulin * Lantus 10u X1 today. This is significantly reduced to her outpt Rx of 25u * Bolus insulin * NovoLog per scale ACHS or Q6hrs while NPO * Goal Range: Low 120 mg/dL - High 160 mg/dL * Correction Factor: 30 mg/dL/unit * Nutritional / Prandial insulin per carb ratio of 1 unit per 10 grams CHO consumed * Please note that the plan above was derived based on current level of insulin resistance and hospital stress. These recommendations are appropriate for inpatient admission only. Plan of care upon discharge will need to be reassessed to avoid potential outpatient hypo/hyperglycemia. Thank you.
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
--- NOTE | 2019-07-16 14:13 | Hospitalist Progress Note ---
Date of Service July 16, 2019 Assessment & Plan (1) Acute on chronic pancreatitis: CT a/p on 07/15 showed "mild inflammatory change surrounding the heterogeneous pancreatic head with associated calcifications. This favors an acute on chronic pancreatitis." The CT also showed partial opacification of the common bile duct stent. - Continue NPO - Continue IV pain medications - GI consulted - Patient already feeling better on 07/15 (2) Pancreatic abnormality: CT a/p showed bulbous and heterogeneous appearance to the pancreatic head a dilated main pancreatic duct. This is concerning for an underlying pancreatic mass. - S/p ERCP in 05/[address] Gatica - GI consulted - Pending recs (3) HTN (hypertension): BP is presently 130/85. - Continue lisinopril (4) Diabetes: A1c is 8.9% in 06/2019; down slightly from prior of 11 last year. - Long-acting and sliding scale insulin - Diabetic pharmacist following (5) Depression: No depressive noted on interview today. - Continue SSRI (6) Asymptomatic bacteriuria: Admitted provider makes note of chronic colonization given her long- standing urinary catheter. No fevers, no chills, no leukocytosis, no symptoms. - Hold abx (7) DVT prophylaxis: Heparin 5000 units Q12h Admission and Anticipated Discharge Date Admission Date: July 16, 2019 Subjective Still having some abdominal pain. It is improved with the IV pain medication. Has her appetite back. Reports no fevers/chills, chest pain, shortness of breath, nausea, or vomiting. Physical Exam Constitutional: WD/WN, vitals as above Eyes: EOM intact bilaterally; no conjunctival abnormality ENMT: external ear and nose normal, oropharynx normal Neck: trachea midline, no thyromegaly normal visual inspection Respiratory: normal respiratory effort, lungs clear to auscultation no respiratory distress Cardiovascular: RRR, no murmur, no edema Gastrointestinal (Abdomen): Inspection/Auscultation: abdomen normal to inspection; abdomen not distended Musculoskeletal: Head/Neck/Chest: normocephalic and head atraumatic Extremities: + limited ROM of extremities (Legs) Skin: no rashes, warm and dry Neurologic: moves all extremities and awake Psychiatric: Orientation: alert, oriented to person and cooperative Results & Data ([facility]) Vital Signs (Past 12 Hours) Vital Signs Temp Pulse Pulse Resp BP BP Pulse Ox 07/16/19 11:30 36.8 C 80 18 128/84 97 07/16/19 03:30 36.9 C 20 135/86 97 07/16/19 02:39 88 15 156/92 H 96 07/16/19 02:00 71 16 125/72 96 PG Care Time/CCT Total # of Minutes Spent Total Time Spent with Patient: Total time spent is greater than 50% in coordination of care (as documented) at patient's floor/unit and/or counseling patient: Coding Level of Care Code 24332 Subseq Hosp Care Lvl 3 Diagnoses Acute on chronic pancreatitis K85.90; K86.1 Pancreatic abnormality Q45.3 HTN (hypertension) I10 Diabetes E11.9 Depression F32.9 Asymptomatic bacteriuria R82.71 DVT prophylaxis Z29.9
[2019-07-16] MEDS: CHECK FENTANYL PATCH PLACEMENT SCH (15:34)
[2019-07-16] MEDS: DICYCLOMINE HCL 10 MG CAP PO SCH ×2 (15:38→20:07)
[2019-07-16] MEDS ORDERED: Nursing to Pharmacy Communication ONE (15:46)
[2019-07-16] MEDS: lisinopriL 10 MG TAB PO SCH (20:07)
[2019-07-16] MEDS ORDERED: cefTRIAXone SODIUM 1,000 MG in DEXTROSE 5% 50 ML IV SCH (22:00)
[2019-07-17] MEDS: CHECK FENTANYL PATCH PLACEMENT SCH ×4 (00:05→23:04)
[2019-07-17] MEDS: LACTATED RINGER'S 1,000 ML IV SCH ×3 (04:19→23:03)
[2019-07-17] MEDS: HYDROmorphone INJ 0.5 MG/0.5 ML SYR IV PRN ×4 (04:25→20:49)
[2019-07-17 06:38] LABS: Hematocrit (blood only) 39.1 % (37-47); Hemoglobin 13.2 g/dL (12.0-16.0); Mean Corpuscular Hemoglobin 34.1 pg (25-34); Mean Corpuscular Hgb Conc 33.8 g/dL (32-36); Mean Platelet Volume 10.5 fL (7.4-10.4); Platelet Count 154 K/uL (130-400); RDW Coefficient of Variation 12.3 % (11.5-14.5); Red Blood Count 3.87 M/uL (4.2-5.4); White Blood Count 7.98 K/uL (4.8-10.8)
[2019-07-17 07:23] LABS: Albumin Level 2.6 gm/dl (3.4-5.0); BUN Creatinine Ratio 13.9 (10-20); Calcium 8.6 mg/dl (8.5-10.1); Creatinine Clr Calc Pharmacy 127.9 ml/min; Est GFR (African American) 146.3; Est GFR (Non-African American) 126.2; Magnesium 1.6 mg/dl (1.8-2.4); Potassium 3.8 mmol/L (3.5-5.1)
[2019-07-17 07:29] LABS: Albumin Globulin Ratio 0.9 (0.9-2); Bilirubin,Total 0.6 mg/dl (0.2-1); Globulin 2.8 gm/dl (2.5-4.0); Phosphorus 3.9 mg/dl (2.5-4.9); Total Protein 5.4 gm/dl (6.4-8.2)
[2019-07-17] MEDS: DICYCLOMINE HCL 10 MG CAP PO SCH ×4 (07:51→20:48)
[2019-07-17] MEDS: ESCITALOPRAM OXALATE 10 MG TAB PO SCH (07:52)
[2019-07-17] MEDS: PANTOprazole 40 MG TAB PO SCH (07:53)
[2019-07-17] MEDS: PANCREAZE (LIPASE 10,500U) CAP PO SCH ×3 (07:54→17:03)
[2019-07-17] MEDS: METHENAMINE HIPPURATE 1 GM TAB PO SCH ×2 (07:54→20:49)
[2019-07-17] MEDS: NICOTINE 14 MG/24 HR PATCH TD SCH (07:55)
[2019-07-17] MEDS: INSULIN ASPART 100 UNITS/ML 3 ML PEN SC SCH ×4 (08:54→20:48)
[2019-07-17] MEDS: FAMOTIDINE 20 MG in SYRINGE 3 ML IV SCH (11:23)
[2019-07-17] MEDS ORDERED: INSULIN GLARGINE SOLOSTAR 100 UNITS/ML 3 ML PEN SC ONE (12:45)
--- NOTE | 2019-07-17 15:38 | Pharmacy Report ---
Glycemic Control Progress Note - Date of Service July 17, 2019 - Scope Glycemic Pharmacist consulted for glycemic control to write orders per [facility] inpatient glycemic control protocol. - Objective Accuchecks BSG(last 24 hours):: 07/16/19 07/16/19 07/17/19 16:58 20:11 06:11 Glucose 61 L POC Glucose 185 H 174 H 07/17/19 07/17/19 07:37 12:12 Glucose POC Glucose 78 135 H - Recent Pertinent Medications The patient is currently receiving: * Basal insulin: Lantus 10 units x 1 around noon * Correctional Insulin: Novolog Correction per scale ACHS Goal Range: Low 110 mg/dL - High 140 mg/dL Correction Factor: 30 mg/dL/unit * Prandial insulin: Per carb ratio of 1 unit per 10 grams CHO consumed - Outpatient Anti-Diabetic Meds Toujeo 25 units QDL Humalog 7 units TIDM - Assessment & Plan ASSESSMENT: * See progress note from 07/16/2019 for more background info, in short: * Pt receiving SQ basal bolus insulin regimen for hyperglycemia secondary to baseline DM (outpatient regimen on hold). * Patient is currently receiving an average of 15 units of insulin per day * 10 units of basal insulin * 5 units of prandial/correctional insulin * BSGs ranging 79 - 185 mg/dl over the past 24hrs * Changes needed to insulin regimen: * AM Fasting BSG = 78 mg/dl. This is below goal range for patient based on inpatient targets and co-morbidities. Therefore Basal insulin will be reduced by 20% to 8 units with lunch. * Post-prandial BSGs were elevated yesterday. Uncertain if the patient missed a dose of basal insulin or ate an uncovered meal. Continue current parameters as these are based on a home regimen of 46 units/day. Much tighter than weight-based dosing. * Total daily dose = ? units. To be determined with increased PO intake. PLAN FOR INPATIENT GLYCEMIC CONTROL: * Decreasing Lantus 8 units SQ with lunch * Continuing correction factor of 30 mg/dl/unit * Continuing carb ratio of 1 unit per 10 grams CHO consumed * Continuing goal range of Low 110 mg/dL - High 140 mg/dL * Please note that the plan above was derived based on current level of insulin resistance and hospital stress. These recommendations are appropriate for inpatient admission only. Plan of care upon discharge will need to be reassessed to avoid potential outpatient hypo/hyperglycemia. Thank you.
--- NOTE | 2019-07-17 15:41 | Gastroenterology Progress Note ---
Date of Service July 17, 2019 Assessment & Plan (1) Acute on chronic pancreatitis: Recent OP MRCP with pancreatic divisum. Plan for OP ERCP as previously scheduled on 07/25/19 for removal of the stent and imaging of both the doral and ventral pancreatic ducts (in lightly of new finding of pancreatic divisum). Low fat, regular consistency diet. Judicious use of narcotics. Continue dicyclomine as an OP. GI will sign off. Please notify us if new/worsening GI issues. Admission and Anticipated Discharge Date Admission Date: July 16, 2019 Subjective Ms. Brynn Reyez is a 54 yr old female admitted for acute on chronic pancreatitis. LFTs/lipase normal. CT with mild peripancreatic stranding. Today, "much better." Asking for "real food." Tells me that dicyclomine is "helpful." Passed on loose BM today. Review of Systems Review of Systems: ROS: Gen: Denies weakness, fevers, weight loss Eyes: No eye redness, or pain, no recent vision changes Resp: No SOB, no cough Cardio: No palpitations/irregular beats, no chest pain GI: See HPI : + abdominal pain - much improved Skin: No jaundice, itching or new rashes MS: Chronic back pain; wheelchair bound from spinal injury Physical Exam Constitutional: WD/WN, vitals as above Eyes: PERRL, conjunctivae normal, anicteric sclerae ENMT: external ear and nose normal, oropharynx normal Neck: trachea midline, no thyromegaly normal visual inspection Respiratory: normal respiratory effort, lungs clear to auscultation Cardiovascular: RRR, no murmur, no edema Gastrointestinal (Abdomen): Inspection/Auscultation: abdomen normal to ins pection and normal bowel sounds Percussion/Palpation: + abdomen tender (minimal epigastric tenderness on deep palpation) and abdomen soft Skin: no rashes, warm and dry Neurologic: PERRL, EOMI, accommodation nl, no face palsy, no dysarthria Results & Data ([facility]) Vital Signs (Past 12 Hours) Vital Signs Temp Pulse Resp BP BP Pulse Ox 07/17/19 15:08 37 C 59 L 18 162/91 H 99 07/17/19 07:19 36.6 C 66 20 137/74 97
--- NOTE | 2019-07-17 16:11 | Hospitalist Progress Note ---
Date of Service July 17, 2019 Assessment & Plan (1) Acute on chronic pancreatitis: CT a/p on 07/15 showed "mild inflammatory change surrounding the heterogeneous pancreatic head with associated calcifications. This favors an acute on chronic pancreatitis." The CT also showed partial opacification of the common bile duct stent. - Advancing diet as tolerated. - Continue IV pain medications - GI consulted -> Plan for OP ERCP (2) Pancreatic abnormality: CT a/p showed bulbous and heterogeneous appearance to the pancreatic head a dilated main pancreatic duct. This is concerning for an underlying pancreatic mass. - S/p ERCP in 05/[address] Gatica - GI consulted - Thought that she has pancreatic divisum. Will get follow up ERCP at [facility] as there is some equipment there Dr. Gatica needs. (3) HTN (hypertension): BP is presently 160/95. - Continue lisinopril -> Increase dose to 20 mg. (4) Diabetes: A1c is 8.9% in 06/2019; down slightly from prior of 11 last year. - Long-acting and sliding scale insulin - Diabetic pharmacist following (5) Depression: No depressive noted on interview today. - Continue SSRI (6) Asymptomatic bacteriuria: Admitted provider makes note of chronic colonization given her long- standing urinary catheter. No fevers, no chills, no leukocytosis, no symptoms. - Hold abx (7) DVT prophylaxis: Heparin 5000 units Q12h Admission and Anticipated Discharge Date Admission Date: July 16, 2019 Subjective Doing much better. Less abdominal pain. Eating more and hungry. Reports no fevers/chills, chest pain, shortness of breath, or nausea. Physical Exam Constitutional: WD/WN, vitals as above Eyes: EOM intact bilaterally; no conjunctival abnormality ENMT: external ear and nose normal, oropharynx normal Neck: trachea midline, no thyromegaly normal visual inspection Respiratory: normal respiratory effort, lungs clear to auscultation no respiratory distress Cardiovascular: RRR, no murmur, no edema Gastrointestinal (Abdomen): Inspection/Auscultation: abdomen normal to inspection; abdomen not distended Musculoskeletal: Head/Neck/Chest: normocephalic and head atraumatic Extremities: + limited ROM of extremities (Legs) Skin: no rashes, warm and dry Neurologic: moves all extremities and awake Psychiatric: Orientation: alert, oriented to person and cooperative Results & Data ([place]) Vital Signs (Past 12 Hours) Vital Signs Temp Pulse Resp BP BP Pulse Ox 07/17/19 15:08 37 C 59 L 18 162/91 H 99 07/17/19 07:19 36.6 C 66 20 137/74 97 PG Care Time/CCT Total # of Minutes Spent Total Time Spent with Patient: Total time spent is greater than 50% in coordination of care (as documented) at patient's floor/unit and/or counseling patient: Coding Level of Care Code 13279 Subseq Hosp Care Lvl 2 Diagnoses Acute on chronic pancreatitis K85.90; K86.1 Pancreatic abnormality Q45.3 HTN (hypertension) I10 Diabetes E11.9 Depression F32.9 Asymptomatic bacteriuria R82.71 DVT prophylaxis Z29.9
[2019-07-17] MEDS: MAGNESIUM SULFATE / D5W 1 GM/100 ML BAG IV SCH ×2 (17:00→18:07)
[2019-07-17] MEDS: lisinopriL 10 MG TAB PO SCH (20:49)
[2019-07-18] MEDS: HYDROmorphone INJ 0.5 MG/0.5 ML SYR IV PRN ×2 (05:46→10:28)
[2019-07-18] MEDS: NICOTINE 14 MG/24 HR PATCH TD SCH (07:26)
[2019-07-18] MEDS: LACTATED RINGER'S 1,000 ML IV SCH ×3 (07:26→20:30)
[2019-07-18] MEDS: PANCREAZE (LIPASE 10,500U) CAP PO SCH ×3 (07:27→16:30)
[2019-07-18] MEDS: DICYCLOMINE HCL 10 MG CAP PO SCH ×4 (07:27→21:15)
[2019-07-18] MEDS: ESCITALOPRAM OXALATE 10 MG TAB PO SCH ×2 (07:28→07:31)
[2019-07-18] MEDS: CHECK FENTANYL PATCH PLACEMENT SCH ×3 (07:28→23:47)
[2019-07-18] MEDS: METHENAMINE HIPPURATE 1 GM TAB PO SCH ×2 (07:28→21:17)
[2019-07-18] MEDS: PANTOprazole 40 MG TAB PO SCH (07:28)
[2019-07-18] MEDS: FAMOTIDINE 20 MG in SYRINGE 3 ML IV SCH (08:48)
[2019-07-18] MEDS: INSULIN ASPART 100 UNITS/ML 3 ML PEN SC SCH ×4 (08:50→21:23)
[2019-07-18] MEDS ORDERED: HYDROmorphone INJ 0.5 MG/0.5 ML SYR IV PRN (11:29)
[2019-07-18] MEDS ORDERED: INSULIN GLARGINE SOLOSTAR 100 UNITS/ML 3 ML PEN SC SCH (11:30)
--- NOTE | 2019-07-18 14:34 | Hospitalist Progress Note ---
Date of Service July 18, 2019 Assessment & Plan (1) Acute on chronic pancreatitis: CT a/p on 07/15 showed "mild inflammatory change surrounding the heterogeneous pancreatic head with associated calcifications. This favors an acute on chronic pancreatitis." The CT also showed partial opacification of the common bile duct stent. - Continue IV pain medications -> Add PO pain medication to try to wean the IV. - GI consulted -> Plan for OP ERCP in [place]. Today having some more pain. Will use low fat diet and see how she feels. Also adding PO pain regimen. (2) Pancreatic abnormality: CT a/p showed bulbous and heterogeneous appearance to the pancreatic head a dilated main pancreatic duct. This is concerning for an underlying pancreatic mass. - S/p ERCP in 05/[address] Gatica - GI consulted - Thought that she has pancreatic divisum. Will get follow up ERCP at [facility] as there is some equipment there Dr. Gatica needs. - Discussed with GI today. They feel she is ready for discharge. (3) HTN (hypertension): BP is presently 150/70. - Continue lisinopril -> Increased dose to 20 mg on 07/17. (4) Diabetes: A1c is 8.9% in 06/2019; down slightly from prior of 11 last year. - Long-acting and sliding scale insulin - Diabetic pharmacist following (5) Depression: No depressive noted on interview today. - Continue SSRI (6) Asymptomatic bacteriuria: Admitted provider makes note of chronic colonization given her long- standing urinary catheter. No fevers, no chills, no leukocytosis, no symptoms. - Hold abx (7) DVT prophylaxis: Heparin 5000 units Q12h Admission and Anticipated Discharge Date Admission Date: July 16, 2019 Subjective Feeling more abdominal pain with solid foods. No vomiting though. Otherwise, stable. Reports no fevers/chills, chest pain, shortness of breath, nausea, or vomiting. Physical Exam Constitutional: WD/WN, vitals as above Eyes: EOM intact bilaterally; no conjunctival abnormality ENMT: external ear and nose normal, oropharynx normal Neck: trachea midline, no thyromegaly normal visual inspection Respiratory: normal respiratory effort, lungs clear to auscultation no respiratory distress Cardiovascular: RRR, no murmur, no edema Gastrointestinal (Abdomen): Inspection/Auscultation: abdomen normal to inspection; abdomen not distended Musculoskeletal: Head/Neck/Chest: normocephalic and head atraumatic Extr emities: + limited ROM of extremities (Legs) Skin: no rashes, warm and dry Neurologic: moves all extremities and awake Psychiatric: Orientation: alert, oriented to person and cooperative Results & Data ([facility]) Vital Signs (Past 12 Hours) Vital Signs Temp Pulse Resp BP Pulse Ox 07/18/19 07:23 36.7 C 57 L 20 151/67 H 100 PG Care Time/CCT Total # of Minutes Spent Total Time Spent with Patient: Total time spent is greater than 50% in coordination of care (as documented) at patient's floor/unit and/or counseling patient: Coding Level of Care Code 36679 Subseq Hosp Care Lvl 2 Diagnoses Acute on chronic pancreatitis K85.90; K86.1 Pancreatic abnormality Q45.3 HTN (hypertension) I10 Diabetes E11.9 Depression F32.9 Asymptomatic bacteriuria R82.71 DVT prophylaxis Z29.9
[2019-07-18] MEDS: OXYCODONE HCL IR 5 MG TAB (IMMEDIATE RELEASE) PO PRN (16:47)
[2019-07-18] MEDS ORDERED: lisinopriL 20 MG TAB PO SCH (21:00)
[2019-07-19] MEDS: OXYCODONE HCL IR 5 MG TAB (IMMEDIATE RELEASE) PO PRN ×3 (02:45→13:13)
[2019-07-19] MEDS: LACTATED RINGER'S 1,000 ML IV SCH (02:45)
[2019-07-19 06:57] LABS: Hematocrit (blood only) 39.2 % (37-47); Hemoglobin 13.5 g/dL (12.0-16.0); Mean Corpuscular Hemoglobin 34.1 pg (25-34); Mean Corpuscular Hgb Conc 34.4 g/dL (32-36); Mean Platelet Volume 11.3 fL (7.4-10.4); Platelet Count 128 K/uL (130-400); RDW Coefficient of Variation 12.2 % (11.5-14.5); RDW Standard Deviation 43.7 fL (36.4-46.3); Red Blood Count 3.96 M/uL (4.2-5.4); White Blood Count 6.46 K/uL (4.8-10.8)
[2019-07-19 07:22] LABS: Calcium 8.5 mg/dl (8.5-10.1); Creatinine Clr Calc Pharmacy 81.9 ml/min; Est GFR (African American) 126.3; Magnesium 1.8 mg/dl (1.8-2.4)
[2019-07-19 07:23] LABS: Phosphorus 3.8 mg/dl (2.5-4.9)
[2019-07-19] MEDS: DICYCLOMINE HCL 10 MG CAP PO SCH ×2 (07:59→11:49)
[2019-07-19] MEDS: CHECK FENTANYL PATCH PLACEMENT SCH (07:59)
[2019-07-19] MEDS: PANTOprazole 40 MG TAB PO SCH (08:02)
[2019-07-19] MEDS: ESCITALOPRAM OXALATE 10 MG TAB PO SCH ×2 (08:02→08:07)
[2019-07-19] MEDS: METHENAMINE HIPPURATE 1 GM TAB PO SCH (08:03)
[2019-07-19] MEDS: PANCREAZE (LIPASE 10,500U) CAP PO SCH ×2 (08:07→12:15)
[2019-07-19] MEDS: fentaNYL 50 MCG/HR TDSY TD SCH (08:07)
[2019-07-19] MEDS: NICOTINE 14 MG/24 HR PATCH TD SCH (08:09)
[2019-07-19] MEDS: INSULIN ASPART 100 UNITS/ML 3 ML PEN SC SCH ×2 (09:18→13:09)
--- NOTE | 2019-07-19 10:38 | Pharmacy Report ---
Pharmacy Glycemic Short Note 2 - Date of Service July 19, 2019 - Glycemic Short BSG Results (Last 24 hours): 07/18/19 07/18/19 07/18/19 11:30 16:46 20:36 Glucose POC Glucose 208 H 129 H 224 H 07/19/19 07/19/19 06:43 07:37 Glucose 184 H POC Glucose 194 H OUTPATIENT ANTIDIABETIC REGIMEN: Toujeo 25 units QDL Humalog 7 units TIDM ASSESSMENT: * Patient is currently receiving an average of 29 units of insulin per day * 9 units of basal insulin * 20 units of prandial/correctional insulin * BSGs ranging 129-224 over the past 24hrs * Risk factors for insulin resistance are increasing over the past 24hrs * PO intake improving * Anticipating insulin regimen will need increased for the next 24hrs d/t : * AM Fasting BSG = 194 therefore Basal insulin needs increased (est TDD at least 35 units) * Novolog parameters are fairly aggressive. Will loosen with increase in basal dose to equal 50/50 basal/bolus split. PLAN FOR INPATIENT GLYCEMIC CONTROL: * Basal insulin - increase * Lantus 18 units SQ daily at lunch * Bolus insulin - loosen CF/CR * NovoLog per scale ACHS or Q6hrs while NPO * Goal Range: Low 110 mg/dL - High 140 mg/dL * Correction Factor: 35 mg/dL/unit * Nutritional / Prandial insulin per carb ratio of 1 unit per 12 grams CHO consumed PLAN FOR DISCHARGE: * A1c 8.9% on 06/25/19 * Goal A1c < 7% * Patient likely needs increase in overall insulin regimen if compliance is not an issue. Recommend outpatient follow up on discharge.
[2019-07-19] MEDS ORDERED: CIPROFLOXACIN 500 MG TAB PO STA (11:20)
[2019-07-19] MEDS ORDERED: INSULIN GLARGINE SOLOSTAR 100 UNITS/ML 3 ML PEN SC SCH (11:30)
--- NOTE | 2019-07-19 11:38 | Discharge Summary ---
Date of Service July 19, 2019 Discharge Data Allergies Allergy/AdvReac Type Severity Reaction Status Date / Time povidone Allergy Unknown TOPICAL Verified 07/15/19 20:35 DURAN HER SKIN---pt had contrast media before povidone-iodine Allergy Unknown TOPICAL-DUARN Verified 07/15/19 20:35 [From Betadine] SKIN soap [From Betadine] Allergy Unknown TOPICAL-DURAN Verified 07/15/19 20:35 SKIN Sulfa (Sulfonamide AdvReac Mild HIVES Verified 07/15/19 20:35 Antibiotics) Consultations 07/15/19 23:47 ED Decision to Admit Stat 07/16/19 03:24 Consult Gastroenterology Routine Ordered Studies 07/15/19 20:27 CT abd pelvis IV con only Stat Hospital Course (1) Acute on chronic pancreatitis: CT a/p on 07/15 showed "mild inflammatory change surrounding the heterogeneous pancreatic head with associated calcifications. This favors an acute on chronic pancreatitis." The CT also showed partial opacification of the common bile duct stent. - Continue IV pain medications -> Add PO pain medication to try to wean the IV. - GI consulted -> Plan for OP ERCP in [place]. Today having some more pain. Will use low fat diet and see how she feels. Also adding PO pain regimen. (2) Pancreatic abnormality: CT a/p showed bulbous and heterogeneous appearance to the pancreatic head a dilated main pancreatic duct. This is concerning for an underlying pancreatic mass. - S/p ERCP in 05/[address] Gatica - GI consulted - Thought that she has pancreatic divisum. Will get follow up ERCP at [facility] as there is some equipment there Dr. Gatica needs. - Discussed with GI today. They feel she is ready for discharge. (3) HTN (hypertension): BP is presently 150/70. - Continue lisinopril -> Increased dose to 20 mg on 07/17. (4) Diabetes: A1c is 8.9% in 06/2019; down slightly from prior of 11 last year. - Long-acting and sliding scale insulin - Diabetic pharmacist following (5) Depression: No depressive noted on interview today. - Continue SSRI (6) UTI (urinary tract infection) due to urinary indwelling catheter: Cipro x 7 days given recent intermittent gross hematuria, foul-smelling urine, increased sediment (7) Pancreas divisum: (8) DVT prophylaxis: Heparin 5000 units Q12h Discharge Plan Discharge Items Patient Disposition: Home - Self-Care Reason For Visit: ACUTE ON CHRONIC PANCREATITIS Discharge Diagnosis: Pancreatitis -> Possibly due to pancreatic divisum, UTI Condition on Discharge: Good Activity: Resume your previous activity Non-emergency contact: Primary Care Provider and Manager [employer] Call non-emergency contact if: you have any medication questions, your symptoms worsen, your pain is not controlled, your pain is worsening, your pain is unusual for you, your pain is concerning for you and your temperature is above 101 Follow-up/Referrals: Alex Gatica MD [Hospitalist] - 08/01/19 (Please follow up with Dr. Gatica at [facility] for the ERCP.) Nirali Vickers CRNP [Primary Care Provider] - 07/25/19 10:00 am (If you need to change this appointment, please call [phone].) Diet: Carb Consistent or DM2 Addtl Attending Provider Instructions: You were admitted for pancreatitis that may be due to your unique pancreatic anatomy (called pancreatic divisum). You improved with some bowel rest, IV fluids, and pain medication. You will need to follow up with Dr. Gatica in his clinic to get the ERCP to try to prevent further pancreatitis issues. Please eat low-fat foods to give your pancreas a rest. Because of your foul-smelling urine and increased sediment, along with a ba cteria called Pseudomonas growing in your urine culture, an antibiotic called Cipro will be prescribed x 7 days. Please keep your follow up appointment with GI for your procedure to remove your stent on 08/01/19 (confirmed with the GI Nurse Practitioner). Do not take any NSAIDs (Aleve, ibuprofen, Motrin, Advil) or aspirin until the GI specialist says it is ok to do so. Pending Studies at Discharge: No Stand-Alone Forms: My [employer], Smoking Cessation Medications and DC Order Prescriptions: New dicyclomine 10 mg Capsule 10 mg PO ACHS PRN (Reason: bowel spasm) Qty: 30 RF: 0 lisinopril 20 mg Tablet 20 mg PO HS Qty: 30 RF: 0 nicotine 14 mg/24 hr patch 24 hour 1 patch TD DAILY Qty: 14 RF: 0 ciprofloxacin HCl [Cipro] 500 mg tablet 500 mg PO BID Qty: 13 RF: 0 Continued (DME) FreeStyle Rola 14 Day Sensor Kit See Rx Instructions .ROUTE .MEDSUPPLY Qty: 1 RF: 11 (DME) FreeStyle Rola 14 Day Unity Misc See Rx Instructions .ROUTE .MEDSUPPLY Qty: 1 RF: 0 cyanocobalamin (vitamin B-12) 1,000 mcg/mL solution 1,000 mcg IM MONTHLY RF: 0 nystatin 100,000 unit/gram cream 1 appln TOP BID PRN (Reason: Skin Cleansing) RF: 0 ondansetron HCl [Zofran] 4 mg tablet 4 mg PO Q6H PRN (Reason: Nausea) RF: 0 (DME) OneTouch Verio strip See Rx Instructions .ROUTE .MEDSUPPLY Qty: 10 RF: 0 fentanyl 50 mcg/hr patch 72 hour 50 mcg transdermal Q72H RF: 0 omeprazole 40 mg capsule,delayed release(DR/EC) 40 mg PO QAM RF: 0 escitalopram oxalate [Lexapro] 10 mg Tablet 10 mg PO DAILY RF: 0 Creon 36,000-114,000- 180,000 unit Capsule,Delayed Release(Dr/Ec) 1 cap PO TIDM RF: 0 cyclobenzaprine 10 mg tablet 10 mg PO TID PRN (Reason: Muscle Spasm) RF: 0 trazodone 50 mg tablet 25 mg PO HS PRN (Reason: Sleep) RF: 0 methenamine hippurate 1 gram tablet 1 g PO BID RF: 0 oxycodone 5 mg tablet 5 mg PO Q6H PRN (Reason: Pain) RF: 0 melatonin 5 mg Tablet 5 mg PO HS PRN (Reason: Sleep) RF: 0 Toujeo SoloStar U-300 Insulin 300 unit/mL (1.5 mL) Insulin Pen 25 unit SUBCUT QDL RF: 0 insulin lispro [Humalog KwikPen Insulin] 100 unit/mL insulin pen 7 units SUBCUT TIDM RF: 0 Discontinued lisinopril 10 mg tablet 10 mg PO HS RF: 0 Discharge Orders: Discharge Order (Routine); Ordered 07/19/19 Ordered By: Grace Judd Admission Data Admit Date/Time: 07/16/19 02:15 Attending Provider: Grace Judd Admit Provider: Yosvany Roman I. Primary Care Provider: Nirali Vickers Other Providers: Lauryn Wiggins ; Herson Reece Coding Diagnoses Acute on chronic pancreatitis K85.90; K86.1 Pancreatic abnormality Q45.3 HTN (hypertension) I10 Diabetes E11.9 Depression F32.9 UTI (urinary tract infection) due to urinary indwelling catheter T83.511A; N39.0 Pancreas divisum Q45.3 DVT prophylaxis Z29.9
--- NOTE | 2019-07-20 02:33 | Billing Data ---
Date of Service July 20, 2019 Coding Level of Care Code 70063 Initial Inpt Care Lvl 3
[2019-08-08] MEDS ORDERED: CYANOCOBALAMIN 1000 MCG/ML VIAL IM SCH (09:00)
== END 2019-07-19 13:45 | disposition home or self-care (01) | DRG 439 ==
LOC: ED 19:51 → SUATTDRO 07-16 02:15 → 2N 07-16 02:15 → 4W 07-16 14:42